=== PATIENT | female | born 1970 | race Caucasian/White ===

== ENCOUNTER 2016-09-09 03:06 | Emergency (ER) | payer SELFPAY ==
--- NOTE | ~2016-09-09 | ER ---
PATIENT'S NAME: FACUNDO COURTNEY [facility] AGE: 45 Y [address] ROOM: [place] [id number] LOCATION: [facility] ADMIT DATE: 09/09/2016 ER/Outpatient Report DISCHARGE DATE: FAMILY PHYSICIAN: PHYSICIAN, NO ATTENDING PHYSICIAN: Woody Nicole Admission date and time were documented in the medical record. I saw the patient at 0325 hours. CHIEF COMPLAINT: Right ear pain. HISTORY OF PRESENT ILLNESS: This patient is a 45-year-old female, who has had a xei-aw-rgiln week history of right ear pain. She started having some muffling of her hearing out of that right ear and some dizziness along with the pain. No sore throat. No fever, chills, or sweats. No coughs, colds, or flus. No chest pain or shortness of breath. No abdominal pain, nausea, vomiting, or diarrhea. No urinary complaints. No skin eruptions or rash. HOME MEDICATIONS: None. ALLERGIES: NONE. SOCIAL HISTORY: The patient smokes a pack of cigarettes a day and nondrinker. SIGNIFICANT PAST MEDICAL HISTORY: 1. Tobacco abuse. 2. Hypertension. OPERATIONS: 1. Tympanostomy tube placement. 2. Tubal ligation. 3. . REVIEW OF SYSTEMS: All the systems were reviewed by me and are negative, with the exception of those discussed in the history of present illness. PHYSICAL EXAMINATION: VITAL SIGNS: Temperature was 97.9 tympanic, pulse was 102, respirations were 16, blood pressure was 149/103, and O2 saturation on room air was 95%. PATIENT'S NAME: FACUNDO COURTNEY [facility] AGE: 45 Y [address] ROOM: [place] [id number] LOCATION: [facility] ADMIT DATE: 09/09/2016 ER/Outpatient Report DISCHARGE DATE: FAMILY PHYSICIAN: PHYSICIAN, NO ATTENDING PHYSICIAN: Woody Nicole HEAD: Normocephalic. EYES: Clear. EARS: Left TM was clear. Right TM, loss of landmarks and bulging. There was some fluid in the ear canal, thick and discolored. NOSE: Clear. THROAT: Clear. NECK: Negative. LUNGS: Clear. HEART: Regular. ABDOMEN: Soft and nontender. Good bowel tones. NEUROVASCULAR: Intact. SKIN: Clear. IMPRESSION: Right otitis. PLAN: The patient was dismissed home. Observation. Activity as tolerated. Fluids and diet as tolerated. Bactrim double strength b.i.d. #30 and Mucinex D 600 mg two orally, 2 times a day #40. Follow up with personal physician as needed. Discussion was ensued with the patient concerning my findings and recommendations, she understands. MD RUTH BARTLETT/modl /[id number] d: 09/09/16 0411 t: 09/09/16 1825, OUTPATIENT REPORT
== END 2016-09-09 03:33 | disposition disaster alternative care site (69) ==
LOC: GMED 03:06
DX: H66.91 Otitis media, unspecified, right ear (principal); F17.210 Nicotine dependence, cigarettes, uncomplicated; I10 Essential (primary) hypertension; Z98.51 Tubal ligation status